=== PATIENT | male | born 1960 | race Caucasian/White ===

== ENCOUNTER → 2018-05-21 | Outpatient (REF) | payer OTHER ==
[2018-05-21 12:55] LABS: BASO # 0.1 10^3/uL (0.0-0.2); BASO % 0.9 % (0.0-1.0); EOS # 0.1 10^3/uL (0.0-0.50); EOS % 1.8 % (0.0-3.0); HEMATOCRIT 42.4 % (42.0-52.0); LYMPH # 1.6 10^3/uL (1.5-4.5); LYMPH % 28.2 % (24.0-44.0); MEAN CORPUSCULAR HEMOGLOBIN 31.8 pg (27.0-33.0); MEAN CORPUSCULAR VOLUME 96.4 fl (80.0-96.0); MONO # 0.5 10^3/uL (0.0-0.8); MONO % 8.6 % (0.0-5.0); NEUTROPHILS # 3.4 10^3/uL (1.8-7.7); PLATELET COUNT, AUTOMATED 236 10^3/uL (150-450); WHITE BLOOD COUNT 5.7 10^3/uL (4.0-10.0)
[2018-05-21 13:13] LABS: ERYTHROCYTE SEDIMENTATION RATE 1 mm/hr (0-20)
[2018-05-21 13:23] LABS: C REACTIVE PROTEIN QUANTITATIV < 0.30 MG/DL (0.00-0.30); RHEUMATOID FACTOR QUANT < 10.0 IU/ML (<15.0)
[2018-05-23 00:07] LABS: ANTI DOUBLE STRAND-DNA AB 1 IU/mL (0-9); ANTINUCLEAR ANTIBODIES DIRECT Positive (Negative); Lyme Disease IgG/IgM Antibodie <0.91 ISR (0.00-0.90); Lyme Disease IgM Ab Quantitati <0.80 index (0.00-0.79); RNP ANTIBODIES <0.2 AI (0.0-0.9); SJOGREN'S ANTI SS-A <0.2 AI (0.0-0.9); SJOGREN'S ANTI SS-B 1.2 AI (0.0-0.9); SMITH ANTIBODIES <0.2 AI (0.0-0.9)
== END ==
LOC: M LABDRAW1 12:36
PROVIDERS: ATTEND Orthopaedic Surgery
DX: M25.561 Pain in right knee (principal)